=== PATIENT | female | born 1995 | race Caucasian/White ===

== ENCOUNTER 2016-06-07 14:22 | Emergency (ER) | payer OTHER ==
[2016-06-07 14:36] VITALS: TEMP 98.7; BMI 20.7
--- NOTE | 2016-06-07 14:44 | PDOC ---
History of Present Illness - General History Source: Patient Exam Limitations: No Limitations - History of Present Illness Initial Comments: 06/07/16 14:46 The patient is a 21-year-old woman, A1, currently approximately 4 weeks , with a past medical history of vi-umbilical dermoid benign tumor who presents to the emergency department via walk-in for further evaluation of vaginal spotting. No heavy blood/clots noted. She took a home test this morning which was positive, Patient expresses concern, as she noted pink- like vaginal spotting with associated clear vaginal discharge, diarrhea and suprapubic sharp abdominal pain for the past couple of days. Patient reports last having intercourse approximately 1 week ago. Her last menstrual period was approximately April 29-2015. She denies fever, chills, generalized weakness. She denies chest pain, shortness of breath, cough She denies nausea, vomiting, dysuria, hematuria, urinary frequency and urgency, flank pain, Allergies: None Known Past Surgical History: None reported Social History: No tobacco, ETOH and recreational drug use. Primary Care Physician: Dr. 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 <Libby Dawson - Last Filed: 06/07/16 15:12> - General History Source: Patient, Old Records Exam Limitations: No Limitations <Melissa Hopkins - Last Filed: 06/07/16 17:28> - General Chief Complaint: Vaginal Bleeding Stated Complaint: VAGINAL BLEEDING, 4 WKS Time Seen by Provider: 06/07/16 14:32 Past History <Libby Dawson - Last Filed: 06/07/16 15:12> - Past Medical History Asthma: No Cancer: No Cardiac Disorders: No Diabetes: No GI Disorders: Yes (benign tumor near belly buttom) HTN: No Seizures: No Thyroid Disease: No Other medical history: - Immunization History Immunization Up to Date: Yes - Psycho/Social/Smoking Cessation Hx Anxiety: No Suicidal Ideation: No Smoking Status: No Smoking History: Never smoked Have you smoked in the past 12 months: No Number of Cigarettes Smoked Daily: 0 Information on smoking cessation initiated: No Hx Alcohol Use: No Drug/Substance Use Hx: No Substance Use Type: None Hx Substance Use Treatment: No <Melissa Hopkins - Last Filed: 06/07/16 17:28> - Past Medical History Allergies/Adverse Reactions: Allergies Allergy/AdvReac Type Severity Reaction Status Date / Time No Known Allergies Allergy Verified 06/07/16 14:36 Home Medications: Ambulatory Orders NK [No Known Home Medication] 06/07/16 Review of Systems - Review of Systems Able to Perform ROS?: Yes Comments:: 06/07/16 14:46 CONSTITUTIONAL: Absent: fever, no chills, no fatigue EYES: Absent: visual changes ENT: Absent: ear pain, no sore throat CARDIOVASCULAR: Absent: chest pain, no palpitations RESPIRATORY: Absent: cough, no SOB GI: Present: Abdominal Pain. Diarrhea. Absent: no nausea, no vomiting, no constipation. GENITOURINARY: Present: Vaginal spotting. Absent: dysuria, no frequency, no hematuria MUSCULOSKELETAL: Absent: back pain, no arthralgia, no myalgia SKIN: Absent: rash NEURO: Absent: headache <Libby Dawson - Last Filed: 06/07/16 15:12> *Physical Exam - Vital Signs Last Vital Signs Temp Pulse Resp BP Pulse Ox 98.7 F 88 18 120/66 100 06/07/16 14:25 06/07/16 14:25 06/07/16 14:06/07/16 14:06/07/16 14:25 - Physical Exam Comments: 06/07/16 14:46 GENERAL: Well-appearing, well-nourished. No apparent distress. HEENT: Normocephalic, atraumatic. PERRL, EOM intact. CARDIOVASCULAR: Normal S1, S2. Regular rate and rhythm. PULMONARY: Clear to auscultation bilaterally. ABDOMEN: Soft, non-distended, non-tender. EXTREMITIES: Normal ROM in all four extremities. No gross deformities. SKIN: Warm, dry. No rash NEUROLOGICAL: No focal neurological deficits. PELVIC: The cervix is erythematous. There is clear vaginal discharge in the vault. Os is closed. <Libby Dawson - Last Filed: 06/07/16 15:12> - Vital Signs Last Vital Signs Temp Pulse Resp BP Pulse Ox 98.7 F 88 18 120/66 100 06/07/16 14:25 06/07/16 14:25 06/07/16 14:25 06/07/16 14:25 06/07/16 14:25 <Melissa Hopkins - Last Filed: 06/07/16 17:28> ED Treatment Course - LABORATORY CBC & Chemistry Diagram: 06/07/16 15:15 <Melissa Hopkins - Last Filed: 06/07/16 17:28> Medical Decision Making - Medical Decision Making 06/07/16 15:07 21-year-old female with history of a dermoid tumor in the abdominal wall, last menstrual period 04/29/2016 who is reported to be as per test at home this morning presents to the emergency Department with complaints of left-sided abdominal pain and vaginal spotting's morning. Differential diagnosis includes but is not limited to: , ectopic , threatened AB, missed AB, UTI, ovarian torsion. Plan: 1. Urine analysis and urine test 2. Beta hCG and type and screen 3. Pelvic ultrasound 4. Observe and reevaluate <Melissa Hopkins - Last Filed: 06/07/16 17:28> *DC/Admit/Observation/Transfer - Attestations Scribe Attestion: 06/07/16 14:46 Documentation prepared by Libby Dawson, acting as medical and scientific illustrator for Melissa Hopkins MD. <Libby Dawson - Last Filed: 06/07/16 15:12> - Attestations Physician Attestion: 06/07/16 15:10 I, Dr. Melissa Hopkins, attest that the scribes documentation that appears above has been prepared under my direction and personally reviewed by me in its entirety. I confirmed that the note above accurately reflects all work, treatment, procedures, and medical decision-making performed by me. <Melissa Hopkins - Last Filed: 06/07/16 17:28> Diagnosis at time of Disposition: Hemorrhage in early - Referrals Referrals: Ruthy Anton [Primary Care Provider] -
[2016-06-07 15:26] LABS: BASOPHIL 0.5 % (0-2.0); EOSINOPHIL 0.8 % (0-4.5); MCH 28.7 pg (25.7-33.7); MCHC 33.2 g/dl (32.0-36.0); MEAN CELL VOLUME 86.2 fl (80-96); MEAN PLT VOLUME 11.3 fl (7.5-11.1); PLATELET COUNT 120 K/MM3 (134-434); RDW 13.7 % (11.6-15.6); WHITE BLOOD COUNT 10.3 K/mm3 (4.0-10.0)
[2016-06-07 16:05] LABS: URINE APPEARANCE CLEAR; URINE BILIRUBIN NEGATIVE (NEGATIVE); URINE BLOOD NEGATIVE (NEGATIVE); URINE COLOR YELLOW; URINE GLUCOSE (UA) NEGATIVE (NEGATIVE); URINE KETONE NEGATIVE (NEGATIVE); URINE LEUK ESTERASE NEGATIVE (NEGATIVE); URINE NITRITE NEGATIVE (NEGATIVE); URINE PROTEIN NEGATIVE (NEGATIVE); URINE UROBILINOGEN NEGATIVE E.U./dl (0.2-1.0)
--- NOTE | 2016-06-07 18:37 | PDOC ---
*Physical Exam - Vital Signs Last Vital Signs Temp Pulse Resp BP Pulse Ox 98.7 F 88 18 120/66 100 06/07/16 14:25 06/07/16 14:25 06/07/16 14:25 06/07/16 14:25 06/07/16 14:25 ED Treatment Course - LABORATORY CBC & Chemistry Diagram: 06/07/16 15:15 - ADDITIONAL ORDERS Additional order review: Laboratory Results 06/07/16 06/07/16 06/07/16 15:35 15:15 14:44 Beta HCG, Quant 55642.2 Urine Color Yellow Urine Appearance Clear Urine pH 6.0 Ur Specific [place] 1.031 Urine Protein Negative Urine Glucose (UA) Negative Urine Ketones Negative Urine Blood Negative Urine Nitrite Negative Urine Bilirubin Negative Urine Urobilinogen Negative Ur Leukocyte Esterase Negative Urine HCG, Qual Positive Blood Type O POSITIVE Antibody Screen Negative 06/07/16 15:15 RBC 4.44 MCV 86.2 MCHC 33.2 RDW 13.7 MPV 11.3 H Neutrophils % 72.0 D Lymphocytes % 20.5 D Monocytes % 6.2 Eosinophils % 0.8 Basophils % 0.5 Progress Note - Progress Note Progress Note: 21 yo female p/w vaginal spotting and a review of her labs work reveals a bhcg =24,187 transvaginal US shows an intrauterine gestational sac and yolk sac with no pole or heartbeat seen. 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
[2016-06-07 18:40] VITALS: BP 109/63; PULSE 78
== END 2016-06-07 18:48 | disposition home or self-care (01) ==
LOC: JER 14:22
DX: O20.8 Other hemorrhage in early pregnancy (principal); Z3A.01 Less than 8 weeks gestation of pregnancy
CPT/HCPCS: 36415; 76817-TC; 81003; 84702; 84703; 85025; 86850; 86900; 86901; 99283-25

== ENCOUNTER 2017-01-26 16:30 | Inpatient (IN) | payer OTHER ==
[2017-01-26] MEDS: DEXTROSE 5%-LACTATED RINGERS 1,000 ML IV SCH (17:00)
[2017-01-26] MEDS ORDERED: BUTORPHANOL TARTRATE 1 MG/ML VIAL IVPB ONE (17:14)
[2017-01-26] MEDS ORDERED: PROMETHAZINE HCL 25 MG/1 ML VIAL IVPUSH ONE (17:14)
[2017-01-26 17:17] VITALS: BMI 27.6
[2017-01-26] MEDS ORDERED: OXYTOCIN 15 UNITS/ LR 250 ML 250 ML IVPB SCH (17:30)
--- NOTE | 2017-01-26 17:33 | HP ---
Past Medical History - Primary Care Physician PCP:: Valorie Salas - Admission Chief Complaint: 22 yrs 38.6/7 weeks onset LP since 12.00 noon admitted in labor History of Present Illness: PNC at 2, [facility] , wt gain 26lbs work Up ; O Pos, Rpr nr, Hbsag neg, Rubella pos, Quantiferon neg, Pngt 108, Siickle neg, Hiv neg, Gc/Ct neg, Gbs neg, pap not done yet Plt count fluctuating between 106, 129 120 , 121 pt was seen by MFM.NT Screen neg. 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 Weeks Gestation by Dates: 38.4 ...EDC by Dates: 02/05/17 ...EDC by Sono: 02/03/17 (38.6/7 weeks by sono ) Heme/Onc: No: Anemia Infectious Disease: No: AIDS, HIV, STD's, Tuberculosis Psych: No: Addictions, Anxiety, Bipolar, Depression, Panic - Past Surgical History Past Surgical History: Yes: None Hx Myomectomy: No Hx Transabdominal Cerclage: No - Smoking History Smoking history: Never smoked Have you smoked in the past 12 months: No Aproximately how many cigarettes per day: 5 - Alcohol/Substance Use Hx Alcohol Use: No History of Substance Use: reports: None - Social History History of Recent Travel: No Home Medications - Allergies Allergies/Adverse Reactions: Allergies Allergy/AdvReac Type Severity Reaction Status Date / Time No Known Allergies Allergy Verified 06/21/16 16:48 - Home Medications Home Medications: Ambulatory Orders Vit Calc,Iron,Folic [ Vitamins] 1 each PO DAILY #30 tablet Physical Exam - Maternity Vital Signs: Selected Entries 01/26/17 17:02 Temperature 98.6 F Pulse Rate 107 H Blood Pressure 125/81 Weight 161 lb Constitutional: Yes: Well Nourished, No Distress, Calm Eyes: Yes: WNL HENT: Yes: WNL, Normocephalic Neck: Yes: WNL Cardiovascular: Yes: WNL, Regular Rate and Rhythm Lungs: Clear to auscultation Breast(s): Yes: WNL - Abdominal Exam/OB Fundal Height: 38 Number of Fetuses: Single Presentation: Vertex Contractions: Yes Regularity: Irregular (5-6 min) Monitor Mode: External Heart Rate (range): 135 Heart Rate Location: [facility] Category: I Accelerations: Uniform Decelerations: None - Vaginal Exam/OB Vaginal Bleediing: No Speculum Exam: No Dilatation (cm): 4 Effacement (%): 80 Amniotic Membrane Status: Intact Meconium: Moderate Presentation: Vertex/Position (5.05 pm exam) Station: -2 - Physical Exam Musculoskeletal: Yes: WNL Extremities: Yes: WNL. No: Calf Tenderness Edema: LLE: Trace, RLE: Trace Integumentary: Yes: WNL Deep Tendon Reflex Grade: Normal +2 ...Motor Strength: WNL Psychiatric: Yes: WNL, Alert, Oriented - Labs Lab Results: Selected Entries 01/26/17 17:02 Weight 161 lb Laboratory Tests 01/26/17 01/26/17 01/26/17 18:00 18:00 18:00 WBC 17.0 H D Hgb 13.3 Hct 39.5 Plt Count 101 L D Neutrophils % 84.5 H D Lymphocytes % 8.5 D Monocytes % 6.5 Eosinophils % 0.4 Basophils % 0.1 PT with INR 10.40 INR 0.95 PTT (Actin FS) 25.3 L Sodium 137 Potassium 3.7 Chloride 105 Carbon Dioxide 24 BUN 9 D Creatinine 0.7 Random Glucose 92 D Blood Type 01/26/17 18:00 WBC Hgb Hct Plt Count Neutrophils % Lymphocytes % Monocytes % Eosinophils % Basophils % PT with INR INR PTT (Actin FS) Sodium Potassium Chloride Carbon Dioxide BUN Creatinine Random Glucose Blood Type O POSITIVE Problem List - Problems (1) 38 weeks gestation of Code(s): Z3A.38 - 38 WEEKS GESTATION OF (2) Labor established Code(s): TKO6424 - (3) Gestational thrombocytopenia Code(s): O99.119 - OTH DIS OF BLD/BLD-FORM ORG/IMMUN MECHNSM COMP PREG,UNSP TRI D69.6 - THROMBOCYTOPENIA, UNSPECIFIED Assessment/Plan 22 yrs , 38.6/7 weeks in labor gbs neg Uc are ireegular, Plan Pitocin augmentation stadol + phenrgan for labor analgesia trial vaginal delivery
[2017-01-26 18:41] LABS: BASOPHIL 0.1 % (0-2.0); EOSINOPHIL 0.4 % (0-4.5); MCH 29.2 pg (25.7-33.7); MCHC 33.7 g/dl (32.0-36.0); MEAN CELL VOLUME 86.7 fl (80-96); MEAN PLT VOLUME 11.1 fl (7.5-11.1); NEUTROPHILS 84.5 % (42.8-82.8); PLATELET COUNT 101 K/MM3 (134-434); RDW 13.6 % (11.6-15.6)
[2017-01-26 19:01] LABS: INR 0.95 (0.82-1.09); PROTHROMBIN TIME (PATIENT) 10.4 SEC (9.98-11.88)
[2017-01-26 19:04] LABS: ACTIVATED PTT 25.3 SECONDS (26.9-34.4)
[2017-01-26 19:14] LABS: ANION GAP 8 (8-16); CALCIUM 8.6 mg/dL (8.5-10.1); CO2 24 mmol/L (21-32); CREATININE 0.7 mg/dL (0.55-1.02); GLUCOSE,RANDOM 92 mg/dL (74-106)
--- NOTE | 2017-01-26 23:07 | PN ---
Progress Note, Labor Vaginal Exam #1 Labor Exam Date: 01/26/17 Labor Exam Time: 22:55 Heart Rate (range): 130-140 Dilatation: 6 Effacement (%): 90 Amniotic Membrane Status: Intact Presentation: Vertex/Position Station: -1 Remarks: FHR cat-1 uc 3 min . pitocin 13 ml/hr Selected Entries 01/26/17 20:00 Temperature 98.4 F Pulse Rate 78 Blood Pressure 123/57 Vaginal Exam #2 Labor Exam Date: 01/27/17 Labor Exam Time: 03:19 Heart Rate (range): 130 Dilatation: 10 Effacement (%): 100 Amniotic Membrane Status: Ruptured (AROM at 3.11AM clear when 9 cm) Presentation: Vertex/Position Station: +2 Remarks: UC q 2-3 min fhr cat-1 pt pushing Selected Entries 01/27/17 02:00 Temperature 98.3 F Pulse Rate 74 Blood Pressure 122/78
[2017-01-27] MEDS: DEXTROSE 5%-LACTATED RINGERS 1,000 ML IV SCH (00:40)
[2017-01-27] MEDS ORDERED: BUTORPHANOL TARTRATE 1 MG/ML VIAL IVPB ONE (01:00)
[2017-01-27] MEDS: D5W-LR W/ 20 UNITS OXYTOCIN 1,000 ML IV SCH ×2 (03:35→06:40)
[2017-01-27] MEDS ORDERED: METHYLERGONOVINE MALEATE 0.2 MG/1 ML AMP IM PRN (04:16)
[2017-01-27] MEDS ORDERED: WITCH HAZEL 50% (TUCKS) 40 PAD/JAR PAD TP PRN (04:16)
[2017-01-27] MEDS ORDERED: oxyCODONE HCL 5 MG TABLET PO PRN (04:16)
[2017-01-27] MEDS ORDERED: BISACODYL 10 MG SUPP.RECT RC PRN (04:16)
[2017-01-27] MEDS ORDERED: BENZOCAINE 28 GM HEMORRHOIDAL OINTMENT TP PRN (04:16)
[2017-01-27] MEDS ORDERED: BENZOCAINE 20% 57 GM BOTTLE TP PRN (04:16)
--- NOTE | 2017-01-27 04:25 | PN ---
Delivery - Delivery Vaginal Delivery: No Problems, Spontaneous Type of Anesthesia: Local Episiotomy/Laceration: Midline (episiotomy sutured in layers with chr catgut #2/ 0 . 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 pnc at [address] [place] [id number] pitocin augmentation was started . stadol 1 mg + phenrgan 25 mg iv stat was given for labor analgesia intrapartum course uneventful
[2017-01-27] MEDS: IBUPROFEN 600 MG TABLET (FP) PO PRN ×2 (07:55→16:40)
[2017-01-27] MEDS: PRENATAL VITAMINS W/ FOLIC ACID TABLET (FP) PO SCH (10:46)
[2017-01-27] MEDS: FERROUS SO4 325 MG TABLET (FP) PO SCH ×2 (12:43→18:13)
[2017-01-27] MEDS: ACETAMINOPHEN 325 MG TABLET (FP) PO PRN (16:39)
[2017-01-28] MEDS: ACETAMINOPHEN 325 MG TABLET (FP) PO PRN ×3 (04:09→21:06)
[2017-01-28] MEDS: IBUPROFEN 600 MG TABLET (FP) PO PRN ×3 (04:09→21:09)
[2017-01-28 08:49] LABS: BASOPHIL 0.3 % (0-2.0); EOSINOPHIL 1.3 % (0-4.5); MCH 29.1 pg (25.7-33.7); MCHC 33.3 g/dl (32.0-36.0); MEAN CELL VOLUME 87.3 fl (80-96); MEAN PLT VOLUME 10.9 fl (7.5-11.1); NEUTROPHILS 69.6 % (42.8-82.8); PLATELET COUNT 106 K/MM3 (134-434); RDW 13.4 % (11.6-15.6); WHITE BLOOD COUNT 13.9 K/mm3 (4.0-10.0)
[2017-01-28] MEDS: PRENATAL VITAMINS W/ FOLIC ACID TABLET (FP) PO SCH (09:29)
[2017-01-28] MEDS: FERROUS SO4 325 MG TABLET (FP) PO SCH ×2 (09:30→16:53)
--- NOTE | 2017-01-28 10:05 | PN ---
Post Progress Note - Subjective Subjective: 22 yo Para 2, status post vaginal delivery, seen and evaluated. Doing well, no complaints. Post Day: 1 Type of Delivery: Vital Signs: Vital Signs Temperature 97.6 F 01/28/17 09:57 Pulse Rate 77 01/28/17 09:57 Respiratory Rate 18 01/28/17 09:57 Blood Pressure 102/53 01/28/17 09:57 O2 Sat by Pulse Oximetry (%) 98 01/27/17 06:30 Breast Exam: Yes: Soft Uterus: Yes: Fundus Firm Abdomen/GI: Yes: Abdomen soft, Tolerating PO Lochia: Yes: Rubra Lochia, amount: Moderate Extremities: Yes: Calves non-tender Activity: Ambulating - Labs Labs: CBC WBC 13.9 K/mm3 (4.0-10.0) H 01/28/17 07:10 RBC 4.15 M/mm3 (3.60-5.2) 01/28/17 07:10 Hgb 12.1 GM/dL (10.7-15.3) 01/28/17 07:10 Hct 36.2 % (32.4-45.2) 01/28/17 07:10 MCV 87.3 fl (80-96) 01/28/17 07:10 MCH 29.1 pg (25.7-33.7) 01/28/17 07:10 MCHC 33.3 g/dl (32.0-36.0) 01/28/17 07:10 RDW 13.4 % (11.6-15.6) 01/28/17 07:10 Plt Count 106 K/MM3 (134-434) L 01/28/17 07:10 MPV 10.9 fl (7.5-11.1) 01/28/17 07:10 Neutrophils % 69.6 % (42.8-82.8) 01/28/17 07:10 Lymphocytes % 20.9 % (8-40) D 01/28/17 07:10 Monocytes % 7.9 % (3.8-10.2) 01/28/17 07:10 Eosinophils % 1.3 % (0-4.5) D 01/28/17 07:10 Basophils % 0.3 % (0-2.0) 09/28/17 07:10 Problem List - Problems (1) Status post vaginal delivery Code(s): FVI0803 - Assessment/Plan Status post vaginal delivery Stable Continue routine care
--- NOTE | 2017-01-28 17:42 | DS ---
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 No: Calf Tenderness Edema: LLE: 1+, RLE: 1+ Neurological: Yes: WNL ...Motor Strength: WNL Psychiatric: Yes: WNL Labs: CBC, BMP 01/28/17 07:10 01/26/17 18:00 Delivery - Delivery Vaginal Delivery: No Problems, Spontaneous Type of Anesthesia: Local Episiotomy/Laceration: Midline (episiotomy sutured in layers with chr catgut #2/ 0 . 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 pnc at 2, [facility] pitocin augmentation was started . stadol 1 mg + phenrgan 25 mg iv stat was given for labor analgesia intrapartum course uneventful . pp course uneventful discharge 01/29/17 Discharge Summary Reason For Visit: INDUCTION OF LABOR Current Active Problems 38 weeks gestation of (Acute) Gestational thrombocytopenia (Acute) Labor established (Acute) Normal spontaneous vaginal delivery (Acute) Status post vaginal delivery (Acute) Condition: Stable - Instructions Diet, Activity, Other Instructions: Post Instructions DIET: Continue good diet high in protein, calcium, and iron rich foods. Drink at least eight (8) glasses of water daily in addition to other fluids. ct Regular diet MEDICATIONS: Continue vitamins and iron as previously directed. Motrin and Tylenol may be taken for minor discomfort. ACTIVITY: Mild to moderate exercise may be started in two (2) weeks. Take frequent rest periods. Resume normal activity after six (6) week check up. WOUND CARE OF OPERATIVE SITE: Continue use of perineal bottle until vaginal discharge stops. Keep area clean. Shower daily. Keep abdominal wound dry. Report any drainage or redness to physician. Tub baths, tampons and douches are not permitted for [address] Breast feeding & or Bottle feeding BREAST CARE: (For those that are not breast feeding): If engorgement occurs: Wear tight fitting bra. Take Tylenol or Motrin for pain. Apply cold packs (ice in bags to each breast ) FAMILY PLANNING: There are many control alternatives to pursue and they should be discussed at your first office visit. You may resume sexual activity after your six (6) week check up. (Remember, breast feeding is not a contraceptive) NEXT PHYSICIAN APPOINTMENT: Be certain to call for a six (6) week appointment, unless otherwise directed. Call Clinic or got to Emergency Dept if you have any of the following: Heavy vaginal bleeding Painful urination Leg pain Unusual odor noted to vaginal bleeding High fever Red streaking noted on breast Referrals: Valorie Salas MD [Staff Physician] - Disposition: HOME - Home Medications Comprehensive Discharge Medication List: Ambulatory Orders NK [No Known Home Medication] 06/07/16 Vit Calc,Iron,Folic [ Vitamins] 1 each PO DAILY #30 tablet Acetaminophen [Tylenol .Regular Strength -] 650 mg PO Q3H PRN #0 tablet Benzocaine [Americaine 20% [place] -] 1 spray TP PRN PRN #0 bottle 01/27/17 Ferrous Sulfate [Feosol] 325 mg PO BIDWM tab 01/27/17 Ibuprofen [Motrin -] 200 mg PO Q4H PRN #0 tablet 01/27/17 Vitamins (Sjr) - 1 tab PO DAILY tablet 01/27/17 [place] 50% (Tucks) [Tucks Pads -] 1 pad TP PRN PRN #0 pad 01/27/17
[2017-01-28] MEDS ORDERED: SENNOSIDES/DOCUSATE COMBO (SENNA PLUS) TABLET (UD) PO PRN (22:00)
[2017-01-29] MEDS: FERROUS SO4 325 MG TABLET (FP) PO SCH (09:10)
[2017-01-29] MEDS: PRENATAL VITAMINS W/ FOLIC ACID TABLET (FP) PO SCH (09:11)
[2017-01-29 11:19] VITALS: BP 115/57; PULSE 81; TEMP 97.5
== END 2017-01-29 12:27 | disposition home or self-care (01) | DRG 560 ==
LOC: JLDR 16:30 → MERGE 16:30 → J3W 01-27 11:30
PROVIDERS: ADMIT Obstetrics & Gynecology; ATTEND Obstetrics & Gynecology
PROC: 10E0XZZ Delivery of Products of Conception, External Approach (ICD-10-PCS; principal; 2017-01-27)
PROC: 0W8NXZZ Division of Female Perineum, External Approach (ICD-10-PCS; 2017-01-27)
DX: O99.12 Other diseases of the blood and blood-forming organs and certain disorders involving the immune mechanism complicating childbirth (principal); D69.6 Thrombocytopenia, unspecified; Z3A.38 38 weeks gestation of pregnancy; Z37.0 Single live birth
CPT/HCPCS: 36415; 59409; 80048; 85025; 85610; 85730; 86593; 86850; 86900; 86901

== ENCOUNTER 2023-07-31 16:48 | Emergency (ER) | payer OTHER ==
[2023-07-31 16:54] VITALS: BP 128/85; PULSE 87; RESP 18; TEMP 98; BMI 22.3
== END 2023-07-31 17:57 | disposition home or self-care (01) ==
LOC: JER 16:48
DX: G89.18 Other acute postprocedural pain (principal); M25.569 Pain in unspecified knee
CPT/HCPCS: 99283-25

== ENCOUNTER 2024-02-08 11:11 | Emergency (ER) | payer OTHER ==
[2024-02-08 12:02] VITALS: BP 102/62; PULSE 77; RESP 18; TEMP 98.3; BMI 22.4
[2024-02-08 12:19] LABS: EPI CELLS >36 /uL (0-25.1); HYALINE CASTS 1 /uL (0-3.1); URINE APPEARANCE CLEAR; URINE BACTERIA 200 /uL (0-1359); URINE BILIRUBIN NEGATIVE (NEGATIVE); URINE COLOR YELLOW; URINE GLUCOSE (UA) NEGATIVE (NEGATIVE); URINE KETONE TRACE (NEGATIVE); URINE LEUK ESTERASE TRACE (NEGATIVE); URINE NITRITE NEGATIVE (NEGATIVE); URINE PROTEIN 1+ (NEGATIVE); URINE RBC 445 /uL (0-23.9); URINE WBC 55 /uL (0-25.8)
[2024-02-08 12:20] LABS: HCG,QUALITATIVE URINE Negative
[2024-02-08] MEDS ORDERED: DOXYCYCLINE HYCLATE 100 MG CAPSULE PO ONE ×2 (12:33→12:48)
[2024-02-08 21:45] LABS: HIV INTERPRETATION NEGATIVE (NEGATIVE)
== END 2024-02-08 13:04 | disposition home or self-care (01) ==
LOC: JERFT 11:11
DX: N89.8 Other specified noninflammatory disorders of vagina (principal); Z11.3 Encounter for screening for infections with a predominantly sexual mode of transmission; R35.0 Frequency of micturition
CPT/HCPCS: 36415; 81003; 84703; 86803; 87086; 87389; 87491; 87591; 87661; 99283-25